=== PATIENT | female | born 1955 | race African-American/Black ===

== ENCOUNTER 2017-11-04 08:25 | Inpatient (IN) | payer MEDICARE, MEDICAID ==
--- NOTE | 2017-10-31 12:30 | Pre-op HX & Phy Repo 2 SIG ---
DATE OF ADMISSION: 11/04/2017 REASON FOR EVALUATION: This patient had been scheduled for surgery on November 04, 2017. CHIEF COMPLAINT: Cancer of the left breast. HISTORY OF PRESENT ILLNESS: This is a 62-year-old female, who presented with diagnosis of the cancer of the left breast. She stated about 2 months ago, she noticed a lump in her left breast. The PCP has performed workup and she has finally undergone a Christiano-Cut needle biopsy, which has been diagnosed with the cancer. She denies any weight loss. She denies shortness of breath. She did not have any children. She did not nurse and there is no history of breast cancer in the family. PAST MEDICAL HISTORY: She denies allergies, asthma, diabetes, and cardiac or renal diseases. She has history of hypertension and psychosis. SURGERIES: Include left breast biopsy. MEDICATIONS: Currently, she is on Fosamax, Lotensin, Norvasc, aspirin, gabapentin, Lipitor, Zyprexa, Lexapro, Clozaril. SOCIAL HISTORY: The patient is a 62-year-old female, who is single without children. She is a resident of a long term. She denies smoking and drinking. REVIEW OF SYSTEMS: Unobtainable. PHYSICAL EXAMINATION: GENERAL: The patient appeared to be a well-developed, well-nourished, 62-year-old female, in no acute distress. HEENT: Head is normocephalic and atraumatic. Eyes, pupils are equal, round, reactive to light. Mouth is clear. NECK: There is no palpable thyromegaly or adenopathy. CHEST: Clear to auscultation and percussion. HEART: There is no gallop or murmur. S1 and S2 are within normal limits. BREASTS: Large and symmetrical. On the right side, there is no palpable lump and there is no skin or nipple changes. On the left side, she has a large tumor which is about 6.5 x 5.5 cm at the 6 o'clock position below the areola. She has a dimple on the skin and this tumor is hard and adhesion to the skin. Besides that, she has a few other lumps in the left breast. Axilla, there is no adenopathy although the CAT scan has shown the adenopathy. ABDOMEN: Obese and protuberant, but soft. There is no palpable organomegaly. Bowel sounds are audible. EXTREMITIES: Within normal limits. ASSESSMENT: Cancer of the left breast. PLAN: The patient had been scheduled for left modified radical mastectomy on November 04, 2017. She has been supplied with official handout and besides she was notified about the risks and benefits, and she understood and will estefany the consent. Raz Issa M.D. DR: Vika JOB#: [id number] CC: JESUS
[~2017-11-04] VITALS: Ht 179.1 cm; Wt 110.8 kg
[2017-11-04] VITALS (10 sets, daily range): BP systolic 134–160; BP diastolic 75–106
[~2017-11-04 08:25] MED LIST: ceFAZolin sod 2 GM in D5W 55 ML IVP ONE
--- NOTE | 2017-11-04 11:20 | Pre-Procedure Note/Attestation ---
Pre-Procedure Note/Attestation Complete Prior to Procedure Planned Procedure: left Procedure Narrative: left modified radical mastectomy Indications for Procedure Pre-Operative Diagnosis: cancer of left breast Attestation I attest that I discussed the nature of the procedure; its benefits; risks and complications; and alternatives (and the risks and benefits of such alternatives ), prior to the procedure, with the patient (or the patient's legal fuels sales representative). I attest that, if there was a reasonable possibility of needing a blood transfusion, the patient (or the patient's legal fuels sales representative) was given the [facility] standardized written summary, pursuant to the [place] Blood Safety Act ([place] Health and Safety Code # 1645, as amended). I attest that I re-evaluated the patient just prior to the surgery and that there has been no change in the patient's H&P, except as documented below: Raz Issa MD Nov 04, 2017 11:20
[2017-11-04] MEDS ORDERED: GABAPENTIN100 MG ORAL (12:06)
[2017-11-04] MEDS ORDERED: SENNA8.6 M2 PO (12:06)
[2017-11-04] MEDS ORDERED: VITAMIN D22000 UNIT PO (12:06)
[2017-11-04] MEDS ORDERED: ATORVASTATIN CA10 MG ORAL (12:06)
[2017-11-04] MEDS ORDERED: MELATONIN10 M1 ORAL (12:06)
[2017-11-04] MEDS ORDERED: DEPAKOTE250 MG PO (12:06)
[2017-11-04] MEDS ORDERED: ASPIR 8181 MG ORAL (12:06)
[2017-11-04] MEDS ORDERED: GABAPENTIN300 MG ORAL (12:06)
[2017-11-04] MEDS ORDERED: LOTENSIN20 MG ORAL (12:06)
[2017-11-04] MEDS ORDERED: FOSAMAX70 MG ORAL (12:06)
[2017-11-04] MEDS ORDERED: CLOZAPINE200 MG PO (12:06)
[2017-11-04] MEDS ORDERED: ZYPREXA10 MG ORAL (12:06)
[2017-11-04] MEDS ORDERED: NORVASC2.5 MG ORAL (12:06)
[2017-11-04] MEDS ORDERED: LEXAPRO10 MG ORAL (12:06)
[2017-11-04] MEDS ORDERED: ZYPREXA20 MG ORAL (12:06)
[2017-11-04] MEDS ORDERED: fentaNYL 100 mcg/2 mL IV ONE ×2 (13:50→14:45)
[2017-11-04] MEDS ORDERED: Lidocaine 1% MPF 10mg/ml 5ml ONE (13:50)
[2017-11-04] MEDS ORDERED: Propofol 200mg/20ml IV ONE (13:50)
[2017-11-04] MEDS ORDERED: Midazolam 2mg/2ml Inj ONE (13:50)
[2017-11-04] MEDS ORDERED: Zemuron 50mg/5ml Inj IV ONE (13:56)
[2017-11-04] MEDS ORDERED: LR 1000ml ONE (14:00)
[2017-11-04] MEDS ORDERED: Sterile Water Irrig 1000ml IRRIG ONE (14:00)
[2017-11-04] MEDS ORDERED: NS Irrig 1000ml ONE (14:00)
[2017-11-04] MEDS ORDERED: Dexamethasone 4mg/ml vial ONE (14:55)
--- NOTE | 2017-11-04 15:11 | Anethesia Preoperative Eval ---
Anesthesia Pre-op PMH/ROS General Date of Evaluation: Nov 04, 2017 Time of Evaluation: 14:05 Anesthesiologist: ASA Score: ASA 3 Mallampati Score Class I : Soft palate, uvula, fauces, pillars visible Class II: Soft palate, uvula, fauces visible Class III: Soft palate, base of uvula visible Class IV: Only hard plate visible Mallampati Classification: Class II Surgeon: hector Diagnosis: left brast cancer Surgical Procedure: left modified radical mastectomy Anesthesia History: none Allergies: Coded Allergies: No Known Allergies (Unverified , 11/03/17) Medications: see eMAR Past Medical History Cardiovascular: Reports: HTN Pulmonary: Denies: asthma, COPD, SHANIKA, other Gastrointestinal/Genitourinary: Denies: GERD, CRI, ESRD, other Neurologic/Psychiatric: Reports: dementia; Denies: CVA, depression/anxiety, TIA, other Endocrine: Denies: DM, hypothyroidism, steroids, other HEENT: Denies: cataract (L), cataract (R), glaucoma, [place] (L), [place] (R), other Hematology/Immune: Denies: anemia, DVT, bleeding disorder, other Musculoskeletal/Integumentary: Denies: OA, RA, DJD, DDD, edema, other Other: obesity Anesthesia Pre-op Phys. Exam Physician Exam Last Vital Signs Date Time Temp Pulse Resp B/P (MAP) Pulse Ox O2 Delivery O2 Flow Rate FiO2 11/04/17 12:23 97.9 68 20 158/94 (115) 97 97.9 11/04/17 11:46 Room Air Constitutional: NAD Cardiovascular: RRR Respiratory: CTA Gastrointestinal: S/NT/ND Airway Exam Mallampati Score: Class II MO: full ROM: full Teeth: missing Dentures: no upper, no lower Anesthesia Pre-op A/P Risk Assessment & Plan Assessment: asa 3 Plan: ETGA Status Change Before Surgery: No Pre-Antibiotics Drug: ancef 2 gram Given Within 1 Hr of Incision: Yes Time Given: 14:30 Nga Rubi M.D. Nov 04, 2017 15:11
[2017-11-04] MEDS ORDERED: LR 1000ml 1,000 ML IVLG SCH (15:13)
[2017-11-04] MEDS ORDERED: Acetaminophen (Non formulary) 100 ML IV ONE (15:15)
[2017-11-04] MEDS ORDERED: Labetalol 5mg/ml 20ml vial IV PRN (15:15)
[2017-11-04] MEDS ORDERED: DiphenhydrAMINE 50mg/ml Inj IVP PRN (15:15)
[2017-11-04] MEDS ORDERED: Hydromorphone 0.5mg/0.5ml inj IVP PRN ×2 (15:15→18:00)
[2017-11-04] MEDS ORDERED: fentaNYL 100 mcg/2 mL IV PRN (15:15)
[2017-11-04] MEDS ORDERED: Midazolam 2mg/2ml Inj IVP PRN (15:15)
--- NOTE | 2017-11-04 15:19 | Immediate Post-Op Evaluation ---
Immediate Post-Op Evalulation Immediate Post-Op Evalulation Procedure: left modified radical mastectomy Date of Evaluation: Nov 04, 2017 Time of Evaluation: 16:00 IV Fluids: 1000ml Blood Products: 0 Estimated Blood Loss: 100ml Urinary Output: 0 Blood Pressure Systolic: 145 Blood Pressure Diastolic: 97 Pulse Rate: 91 Respiratory Rate: 15 O2 Sat by Pulse Oximetry: 100 Temperature (Fahrenheit): 97 Pain Score (1-10): 0 Nausea: No Vomiting: No Patient Status: awake, patent, none Drug: ancef 2 grams Given Within 1 Hr of Incision: Yes Time Given: 14:30 Nga Rubi M.D. Nov 04, 2017 15:19
[2017-11-04] MEDS ORDERED: Neostigmine 1mg/ml 10ml Inj ONE (15:31)
[2017-11-04] MEDS ORDERED: Glycopyrrolate 0.2mg/ml 1ml Vial ONE (15:31)
--- NOTE | 2017-11-04 15:45 | Brief Operative Note ---
Immediate Post Operative Note Operative Note Pre-op Diagnosis: cancer of left breast Procedure: left modified racical mastectomy Post-op Diagnosis: same as pre-op Findings: consistent w/pre-op dx studies Surgeon: MD Sandrine Cocoa Bean Cleaner: none Anesthesiologist: Dr. Rubi Anesthesia: general Specimen: yes Complications: none Condition: stable Fluids: per anesthesiologist Estimated Blood Loss: volume - 50 ml Drains: other - ladonna x2 Implant(s) used?: No Raz Issa MD Nov 04, 2017 15:45
--- NOTE | 2017-11-04 17:45 | Operative Note - Dictated ---
DATE OF OPERATION: 11/04/2017 PREOPERATIVE DIAGNOSIS: Left breast cancer. POSTOPERATIVE DIAGNOSIS: Left breast cancer. OPERATION: Left modified radical mastectomy. COMPLICATIONS: None. SURGEON: Raz Issa M.D. KILN PULLER: None. ANESTHESIA: General with endotracheal tube. ANESTHESIOLOGIST: Dr. Rubi. INDICATIONS: This is a 62-year-old female, who presented with a diagnosis of cancer of the left breast. She stated that about 2 to 3 months ago, she noticed a lump in her left breast, which has been worked up and she has had Christiano-Cut needle biopsy, which has shown a cancer of the left breast. At this time, physical examination showed a very large mass about 6.5 cm in diameter at 6 o'clock below the areola with adhesion to the skin, which has caused a dimple in the skin and axilla. I was unable to feel any adenopathy in the axilla, but the CAT scan has shown adenopathy. DESCRIPTION OF PROCEDURE: The patient was placed supine on the operating table and after general anesthesia with endotracheal tube, the left breast and axilla was properly prepped and draped. An elliptical incision was given around the left breast, which extended from sternum to the axilla and was mainly located in the lower part of the left breast. The incision was carried sharply through the subcutaneous tissue and the inferior and superior flaps were created. After we reached the chest wall on the lower part and at the upper part, we reached the chest wall at almost area of the clavicle and the dissection in this part was 10 mm and then the dissection was carried from medial to lateral and the breast tissue was lifted up from the pectoralis muscle under the fascia. This dissection was carried towards the axilla. The blunt dissection was performed and after we noticed the axillary vein, the dissection below the vein was carried further . It was noticed that the patient had multiple small lymph nodes and a very large lymph node, which was at the size of about 2 inch x 1 inch. The contents of the axilla was gradually dissected and removed and blocked with the breast. During the dissection, the axillary vein, thoracodorsal neurovascular, and lateral thoracic nerve was seen and preserved. During the dissection, a few penetrating nerves were sacrificed. The bleeding points were controlled and the specimen was completely removed and the incision was thoroughly irrigated with sterile water. The Yaw drain was placed over the pectoralis muscle and was brought out from a separate stab wound and another Yaw drain was placed in the axilla and was brought out from the separate stab wounds. The incision was approximated with running suture of 2-0 Vicryl for the subcutaneous tissue and multiple skin royer. The patient tolerated the procedure very well and was transferred to recovery room in stable condition and extubated. Sponge and needle count correct. Estimated blood loss about 50 to 60 mL. Condition of the patient at the end of the procedure is stable. It should be noted that at this time, it appears that she had positive lymph nodes in the axilla and considering the size of the tumor, her cancer is stage III. Raz Issa M.D. DR: FAITH JOB#: [id number] CC:
[2017-11-04] MEDS ORDERED: Sennosides 8.6mg ORAL PRN (18:00)
[2017-11-04] MEDS ORDERED: D5 1/2NS w/KCl 20mEq 1,000 ML IV SCH (18:00)
[2017-11-04] MEDS ORDERED: HYDROmorphone 1mg/ml Carpuject IVP PRN (18:00)
[2017-11-04] MEDS: Docusate 100mg cap ORAL SCH (18:33)
[2017-11-04] MEDS: cefOXitin Sod 2 GM in D5W 110 ML IV SCH ×2 (18:35→23:37)
[2017-11-04] MEDS ORDERED: Zolpidem 5mg tab ORAL PRN (21:00)
[2017-11-05] VITALS: BP 140/85
[2017-11-05 04:00] VITALS: BP 155/101
[2017-11-05] MEDS: cefOXitin Sod 2 GM in D5W 110 ML IV SCH (05:30)
[2017-11-05 05:35] LABS: BASOPHILS % (AUTO) 0.6 % (0.0-2.0); HEMATOCRIT 36.1 % (37.0-47.0); HEMOGLOBIN 11.8 G/DL (12.0-16.0); LYMPHOCYTES % (AUTO) 9.9 % (20.0-45.0); MEAN CORPUSCULAR VOLUME 81 FL (80-99); MONOCYTES % (AUTO) 5.9 % (1.0-10.0); NEUTROPHILS % (AUTO) 83.5 % (45.0-75.0); PLATELET COUNT 194 K/UL (150-450); RED BLOOD COUNT 4.47 M/UL (4.20-5.40); RED CELL DISTRIBUTION WIDTH 13.2 % (11.6-14.8); WHITE BLOOD COUNT 12.2 K/UL (4.8-10.8)
[2017-11-05 05:55] LABS: ANION GAP 10 mmol/L (5-15); BLOOD UREA NITROGEN 10 mg/dL (7-18); CALCIUM 8.8 MG/DL (8.5-10.1); CARBON DIOXIDE 25 MMOL/L (21-32); CHLORIDE 108 MMOL/L (98-107); CREATININE 1.1 MG/DL (0.55-1.30); SODIUM 142 MMOL/L (136-145)
[2017-11-05 08:00] VITALS: BP 124/75
[2017-11-05] MEDS: Docusate 100mg cap ORAL SCH (08:09)
[2017-11-05] MEDS ORDERED: Benazepril 10mg tab ORAL SCH (09:00)
--- NOTE | 2017-11-05 10:17 | 48 Hour Post Anesthesia Eval ---
Post Anesthesia Evaluation Procedure: left modified radical mastectomy Date of Evaluation: Nov 05, 2017 Time of Evaluation: 08:35 Blood Pressure Systolic: 124 0: 75 Pulse Rate: 113 Respiratory Rate: 19 Temperature (Fahrenheit): 97.6 O2 Sat by Pulse Oximetry: 98 Airway: patent Nausea: No Vomiting: No Pain Intensity: 2 Hydration Status: adequate Cardiopulmonary Status: Stable Mental Status/LOC: patient returned to baseline Follow-up Care/Observations: 0 Post-Anesthesia Complications: 0 Follow-up care needed: N/A Darius Palacios MD Nov 05, 2017 10:17
[2017-11-05 12:00] VITALS: BP 117/80
--- NOTE | 2017-11-05 12:34 | General Surgery Progress Note ---
General Surgery-Progress Note Subjective Procedure Performed left modified racical mastectomy Objective Last 24 Hour Vital Signs Date Time Temp Pulse Resp B/P (MAP) Pulse Ox O2 Delivery O2 Flow Rate FiO2 11/05/17 12:00 97.5 99 20 117/80 (92) 98 97.5 11/05/17 10:17 207.7 113 19 98 11/05/17 08:10 124/75 11/05/17 08:10 113 124/75 11/05/17 08:00 97.6 113 19 124/75 (91) 98 97.6 11/05/17 08:00 Room Air 11/05/17 05:38 155/101 11/05/17 04:00 98.3 108 19 155/101 (119) 98 98.3 11/05/17 00:00 97.4 103 19 140/85 (103) 98 97.4 11/04/17 23:37 136/103 11/04/17 21:00 Room Air 11/04/17 20:00 97.2 96 137/100 (112) 95 97.2 11/04/17 18:33 151/104 11/04/17 18:00 97.9 20 151/104 (120) 100 97.9 11/04/17 17:15 Nasal Cannula 2.0 11/04/17 17:15 97.3 81 20 154/106 (122) 100 97.3 11/04/17 16:45 97.8 79 14 149/95 100 Nasal Cannula 3 97.8 11/04/17 16:30 81 16 145/75 100 Nasal Cannula 3 11/04/17 16:20 81 18 134/81 100 Nasal Cannula 3 11/04/17 16:10 206.6 91 15 100 11/04/17 16:09 78 20 160/92 100 Nasal Cannula 3 11/04/17 16:04 82 16 159/94 100 Simple Mask 6 11/04/17 15:59 97 93 15 142/97 100 Simple Mask 6 97.0 I&O Intake and Output 11/04/17 11/05/17 19:00 07:00 Intake Total 1600 ml 480 ml Output Total 185 ml 150 ml Balance 1415 ml 330 ml Intake Oral 400 ml 480 ml IV Total 1200 ml Output Drainage Total 85 ml 150 ml Estimated Blood Loss 100 ml # Voids 1 Dressing: dry Drains: ladonna Respiratory: clear Abdomen: soft, non-tender Extremities: no edema, no tenderness Laboratory Tests Test 11/05/17 05:10 White Blood Count 12.2 K/UL (4.8-10.8) H Red Blood Count 4.47 M/UL (4.20-5.40) Hemoglobin 11.8 G/DL (12.0-16.0) L Hematocrit 36.1 % (37.0-47.0) L Mean Corpuscular Volume 81 FL (80-99) Mean Corpuscular Hemoglobin 26.4 PG (27.0-31.0) L Mean Corpuscular Hemoglobin Concent 32.7 G/DL (32.0-36.0) Red Cell Distribution Width 13.2 % (11.6-14.8) Platelet Count 194 K/UL (150-450) Mean Platelet Volume 10.8 FL (6.5-10.1) H Neutrophils (%) (Auto) 83.5 % (45.0-75.0) H Lymphocytes (%) (Auto) 9.9 % (20.0-45.0) L Monocytes (%) (Auto) 5.9 % (1.0-10.0) Eosinophils (%) (Auto) 0.0 % (0.0-3.0) Basophils (%) (Auto) 0.6 % (0.0-2.0) Sodium Level 142 MMOL/L (136-145) Potassium Level 4.0 MMOL/L (3.5-5.1) Chloride Level 108 MMOL/L (98-107) H Carbon Dioxide Level 25 MMOL/L (21-32) Anion Gap 10 mmol/L (5-15) Blood Urea Nitrogen 10 mg/dL (7-18) Creatinine 1.1 MG/DL (0.55-1.30) Estimat Glomerular Filtration Rate > 60 mL/min (>60) Glucose Level 136 MG/DL (74-106) H Calcium Level 8.8 MG/DL (8.5-10.1) Assessment Additional Comments S/P left mastectomy Plan Additional Comments discharge Raz Issa MD Nov 05, 2017 12:34
--- NOTE | 2017-11-05 12:40 | Discharge Instructions ---
Discharge Instructions Discharge Instructions Follow up with: my office one week Diet: 4 GM sodium (no salt added), low fat, regular Resume Normal Activity?: Yes Activity: up ad corey Follow Up Orders document drain out put daily and bring it to visit For Surgical Patients Clean and Dry: surgical site May shower: No For Congestive Heart Failure Reminder Report to your physician any weight gain of 5 pounds or more in one week. Raz Issa MD Nov 05, 2017 12:40
[2017-11-05 13:00] VITALS: BP 117/80
[2017-11-05] MEDS ORDERED: TRAMADOL HCL50 MG ORAL (13:48)
[2017-11-05] MEDS ORDERED: CEPHALEXIN500 MG ORAL (13:49)
--- NOTE | 2017-11-06 06:59 | Discharge Summary ---
Discharge Summary Hospital Course Date of Admission Nov 04, 2017 at 11:04 Date of Discharge Nov 05, 2017 at 14:20 Admitting Diagnosis HPI This is a 62-year-old female, who presented with diagnosis of the cancer of the left breast. She stated about 2 months ago, she noticed a lump in her left breast. The PCP has performed workup and she has finally undergone a Christiano-Cut needle biopsy, which has been diagnosed with the cancer. She denies any weight loss. She denies shortness of breath. She did not have any children. She did not nurse and there is no history of breast cancer in the family. Procedures OPERATION: Left modified radical mastectomy. Hospital Course Patient was admitted, physical examination showed a very large mass about 6.5 cm in diameter at 6 o'clock below the areola with adhesion to the skin, which has caused a dimple in the skin and axilla. Unable to feel any adenopathy in the axilla, but the CAT scan has shown adenopathy. She underwent modified radical mastectomy on the left breast. She tolerated procedure well. Post-operatively, she was given pain management. She was placed on SCDs for DVT prophylaxis. Diet was advanced. She was instructed on care for Yaw drain. She had good pain control and was ambulating well, vitals stable. She was then cleared for discharge home. PREOPERATIVE DIAGNOSIS: Left breast cancer. POSTOPERATIVE DIAGNOSIS: Left breast cancer. OPERATION: Left modified radical mastectomy. --I have been assigned to complete a DC summary to this account, I was not involved with the patient management.--NEELA Story Discharge Discharge Disposition Patient was discharged to SNF/Subacute Facility(03) Discharge Instructions Discharge Instructions Follow up with: my office one week Activity: up ad corey For Surgical Patients Clean and Dry: surgical site May shower: Farideh Keller NP Nov 06, 2017 06:59
== END 2017-11-05 14:20 | DRG 583 ==
LOC: SDSOVERFLO 11:04 → 3E 17:00
DX: C50.812 Malignant neoplasm of overlapping sites of left female breast (principal); I10 Essential (primary) hypertension; F29 Unspecified psychosis not due to a substance or known physiological condition
CPT/HCPCS: 36415; 80048; 85025; 87081; 94003; 94150; J2250; J2405; J2710